=== PATIENT | female | born 1990 | race Caucasian/White ===

== ENCOUNTER 2016-06-30 06:04 | Inpatient (IN) | payer MEDICAID ==
--- OUTSIDE RECORDS SUMMARY | 2016-06-30 06:12 | XMS REPORT | Continuity of Care Document ---
:1990 Author Organization [facility] [place] [address] Care Team Providers Name Role Phone Provider, None Per Patient Primary Care Provider Unavailable Source Comments This disclosure is being made pursuant to the [employer] program and maynot contain all information available regarding this patient.[facility] Active Allergies and Adverse Reactions Allergen Noted Date Severity Reactions Comments Omnicef 12/03/2011 Other (See Comments) Pt unsure of reaction to this med Current Medications Be aware that medications may not be up to date as of this document. Alwaysverify current medications with the patient. Prescription Sig. Disp. Refills Start Date End Date Status Etonogestrel-Ethinyl Place vaginally. 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
--- OUTSIDE RECORDS SUMMARY | 2016-06-30 06:12 | XMS REPORT | Continuity of Care Document ---
:1990 Author Organization [facility] ([facility]) Address [place] [address] Phone [phone] Care Team Providers Name Role Phone Unavailable Primary Care Provider Unavailable Source Comments This disclosure is being made pursuant to the Care Everywhere program, applicable federal and state laws, and may not contain all informaitonavailable regarding this patient.[facility] ([facility]) Active Allergies and Adverse Reactions Not on File Current Medications Not on file Active Problems Not on file Social History Tobacco Use Types Packs/Day Years Used Date Never Assessed Plan of Care Health Maintenance Due Date Last Done Comments Hepatitis B Vaccine (1 of 3 - Primary Series) 1990 HPV Vaccine (1 of 3 - Female/Unknown 3 Dose Series) 2001 Tdap Vaccine 2001 Cervical Cancer Screening 2008 Lipid Disorder Screening 2008 MMR Vaccine 2008 Td Vaccine 2008 Varicella Vaccine (1 of 2 - Adult - No Evidence of 2008 Immunity) Influenza Vaccine: Seasonal (#1) 11/05/2015 Results from Last 3 Months Not on file
[2016-06-30] MEDS ORDERED: LIDOCAINE HCL 50 ML VIAL PERI PRN (08:41)
[2016-06-30] MEDS ORDERED: BUTORPHANOL TARTRATE 2 MG/ML VIAL IV PRN (08:41)
[2016-06-30] MEDS ORDERED: DEXTROSE 5%-LACTATED RINGERS 1,000 ML IV PRN (08:41)
[2016-06-30] MEDS ORDERED: OXYTOCIN/DEXTROSE 5%-WATER 30 UNITS/500 ML BAG IV ONE ×4 (08:41→18:04)
[2016-06-30] MEDS ORDERED: ONDANSETRON HCL/PF 2 MG/ML VIAL IV PRN (08:41)
--- OUTSIDE RECORDS SUMMARY | 2016-06-30 08:51 | XMS REPORT | Continuity of Care Document ---
:1990 Author Organization [facility] [place] [address] Care Team Providers Name Role Phone Provider, None Per Patient Primary Care Provider Unavailable Source Comments This disclosure is being made pursuant to the [employer] program and maynot contain all information available regarding this patient.[facility] Active Allergies and Adverse Reactions Allergen Noted Date Severity Reactions Comments Omnicef 12/03/2011 Other (See Comments) Pt unsure of reaction to this med Current Medications Be aware that medications may not be up to date as of this document. Alwaysverify current medications with the patient. Prescription Sig. Disp. Refills Start Date End Date Status Etonogestrel-Ethinyl Place vaginally. 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 Respiratory Rate 20 04/11/2015 2:08 PM 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
--- OUTSIDE RECORDS SUMMARY | 2016-06-30 08:51 | XMS REPORT | Continuity of Care Document ---
:1990 Author Organization [facility] ([facility]) [place] [address] Phone [phone] Care Team Providers Name Role Phone Unavailable Primary Care Provider Unavailable Source Comments This disclosure is being made pursuant to the Care Everywhere program, applicable federal and state laws, and may not contain all informaitonavailable regarding this patient.[facility] ([facility]) Active Allergies and Adverse Reactions Not on [...]
[2016-06-30] MEDS: RINGERS SOLUTION,LACTATED 1,000 ML IV PRN ×2 (09:25→17:28)
[2016-06-30] MEDS ORDERED: NALOXONE HCL 1 MG/1 ML SYRG IV PRN (10:04)
[2016-06-30] MEDS ORDERED: BUPIVACAINE HCL/PF 30 ML VIAL EP ONE (10:04)
[2016-06-30] MEDS ORDERED: BUPIVACAINE HCL/0.9 % NACL/PF 250 ML EP PRN (10:04)
--- NOTE | 2016-06-30 10:34 | OR ---
Anesthesia Pre Procedure Eval Date of Service: 06/30/16 Pre Procedure Evaluation: Last Vital Signs Temp 36.5 C 06/30/16 10:05 Pulse 18 L 06/30/16 10:05 Resp 84 H 06/30/16 10:05 BP 126/80 06/30/16 10:05 Pulse Ox 97 06/30/16 10:05 DATE: 06/30/2016 TIME: 10:30 INDICATIONS: Active labor, labor pain PAST MEDICAL HISTORY: Primipara patient in active labor at 4 cm dilatation, requesting labor analgesia EXAM: Heart regular; lungs clear ASSESSMENT OF MEDICAL STATUS: Appropriate candidate for labor analgesia PLANNED PROCEDURE: Combination spinal epidural for labor analgesia Home Medications: HOME MEDICATIONS Vit#96/Ferrous Fum/FA [ S] 1 tab PO DAILY 06/30/16 [Last Taken Unknown]
[2016-06-30] MEDS ORDERED: fentaNYL CITRATE/PF 50 MCG/ML AMPUL IT SCH (10:45)
--- NOTE | 2016-06-30 10:56 | OR ---
Anesthesia Procedure Note - Anesthesia Procedure Note Date of Service: 06/30/16 Narrative: Vital Signs - Last Taken Temp 36.5 C 06/30/16 10:05 Pulse 18 L 06/30/16 10:05 Resp 84 H 06/30/16 10:05 BP 126/80 06/30/16 10:05 Pulse Ox 97 06/30/16 10:05 06/30/16 10:55 ANESTHESIA PROCEDURE NOTE Date of Procedure: 06/30/2016 Time of procedure: 10:30. Performed by: CORINA Hays CRNA, MSN Quilt Maker: Kaye Sarah RN. Preprocedure diagnosis: Active labor, labor pain. Post procedure diagnosis: Same. Procedure: Labor Epidural Placement L3 4. Indications: Labor pain. Findings: See below. Details of the procedure: The patient was placed on the side of the bed in sitting position. The patient was prepped with DuraPrep and draped in a sterile fashion. Lidocaine 1% was infiltrated to the skin and subcutaneous tissues at the level of the L3 4 interspace. The epidural space was identified using a 18-gauge Tuohy needle with [id number] technique. Fentanyl 20 g was given intrathecally the intrathecal needle was then removed and the epidural catheter was threaded approximately 4 cm, the epidural needle was then removed, and after careful aspiration 3 mL of 1.5% lidocaine with 1-200,000 epinephrine was injected without change in maternal heart rate or sensorium. The catheter was then taped in place. EBL: Minimal. Fluids: N/A. Specimen: N/A. Post procedure condition: The patient tolerated the procedure well with good relief. No complications were noted. Thank you for this consultation. Chacho Zarate CRNA, MECHANICAL ENGINEERING PROFESSOR, MSN
[2016-06-30] MEDS ORDERED: HYDROCORTISONE 30 APPL TUBE TP PRN (18:04)
[2016-06-30] MEDS ORDERED: oxyCODONE HCL/ACETAMINOPHEN 1 TAB TABLET PO PRN (18:04)
[2016-06-30] MEDS ORDERED: SENNOSIDES 8.6 MG TABLET PO PRN (18:04)
[2016-06-30] MEDS ORDERED: BENZOCAINE/MENTHOL 81 SPRAY CAN TP PRN (18:04)
[2016-06-30] MEDS ORDERED: GLYCERIN/WITCH HAZEL LEAF 40 APPL BOX TP PRN (18:04)
[2016-06-30] MEDS ORDERED: BISACODYL 10 MG SUPP.RECT RC PRN (18:04)
--- NOTE | 2016-06-30 18:22 | OR ---
Operative Report - Dictated Report Narrative: Spontaneous Vaginal Delivery Viable male with APGARS of 9 at 1 minute and 9 at 5 minutes. He delivered at 1746. Presentation was YOGESH. No nuchal cord was noted. The left shoulder was anterior and delivered with gentle downward traction after slight rotation under the pubic bone. The posterior shoulder then delivered without difficulty and the baby was placed on the maternal abdomen. Terminal meconium was noted. Spontaneous cry was noted. After 60 seconds the cord was clamped and cut. Weight: 3718 g or 8 pounds 3.1 ounces Placenta was delivered spontaneously and intact. First degree bilateral vaginal lacerations were noted and hemostatic and the first degree right periurethral laceration that was hemostatic without repair. Estimated blood loss: 100 ml Mother and baby tolerated delivery well. History for Definition: * The number of deliveries resulting in a live the patient experienced prior to current hospitalization * The previous delivery of live twins or any live multiple gestation is considered one live event. *If primagravida or nulliparous is documented select zero for the number of previous live births. Live Events: 0
[2016-06-30] MEDS: DOCUSATE SODIUM 100 MG CAPSULE PO SCH (22:06)
[2016-06-30] MEDS: IBUPROFEN 800 MG TABLET PO PRN (22:06)
[2016-06-30] MEDS ORDERED: diphenhydrAMINE HCL 25 MG CAPSULE PO PRN (22:27)
[2016-06-30] MEDS: oxyCODONE HCL/ACETAMINOPHEN 1 TAB TABLET PO PRN (22:31)
[2016-07-01] MEDS: IBUPROFEN 800 MG TABLET PO PRN (06:17)
[2016-07-01] MEDS: DOCUSATE SODIUM 100 MG CAPSULE PO SCH (09:02)
--- NOTE | 2016-07-01 12:36 | PN ---
Progess Note - Interim Narrative: 07/01/16 12:35 progress note Subjective: The patient is doing well. She is ambulating, voiding, tolerating by mouth. She has minimal pain and moderate lochia. Objective: General: No acute distress Abdomen: Soft, nontender, fundus is firm just below the umbilicus Extremities: minimal edema, nontender to palpation Assessment and plan: day 1 Feeding: Breast Pain: Controlled with by mouth medication control: Progesterone only mini pill Routine care.
[2016-07-02] MEDS: oxyCODONE HCL/ACETAMINOPHEN 1 TAB TABLET PO PRN (02:37)
[2016-07-02] MEDS: DOCUSATE SODIUM 100 MG CAPSULE PO SCH ×2 (02:38→09:27)
[2016-07-02 06:57] VITALS: BP 100/59
[2016-07-02] MEDS: IBUPROFEN 800 MG TABLET PO PRN (09:28)
--- NOTE | 2016-07-02 12:19 | PN ---
Progess Note - Interim Narrative: 07/02/16 12:18 progress note Subjective: The patient is doing well. She is ambulating, voiding, tolerating by mouth. She has minimal pain and moderate lochia. Objective: General: No acute distress Abdomen: Soft, nontender, fundus is firm just below the umbilicus Extremities: minimal edema, nontender to palpation Assessment and plan: day 2 Feeding: Breast Pain: Controlled with by mouth medication control: progesterone only mini pill Routine care.
== END 2016-07-02 13:55 | disposition home or self-care (01) | DRG 775 ==
LOC: OBCLINIC 06:04 → OB 08:46
PROVIDERS: ADMIT Obstetrics & Gynecology Gynecologic Oncology; ATTEND Obstetrics & Gynecology Gynecologic Oncology
PROC: 10E0XZZ Delivery of Products of Conception, External Approach (ICD-10-PCS; principal; 2016-06-30)
PROC: 4A1HXCZ Monitoring of Products of Conception, Cardiac Rate, External Approach (ICD-10-PCS; 2016-06-30)
PROC: 3E0S3CZ (ICD-10-PCS; 2016-06-30)
DX: O70.0 First degree perineal laceration during delivery (principal); O77.0 Labor and delivery complicated by meconium in amniotic fluid; O99.334 Smoking (tobacco) complicating childbirth; Q51.3 Bicornate uterus; Z3A.39 39 weeks gestation of pregnancy; Z37.0 Single live birth